=== PATIENT | female | born 1975 | race Hispanic/Latino ===

== ENCOUNTER 2025-09-25 09:36 | Outpatient (CLI) | payer BC ==
[2025-09-25] MEDS ORDERED: Iopamidol 370 76% 100 ML VIAL ONE (14:05)
== END 2025-09-25 09:37 | disposition home or self-care (01) ==
LOC: CT 09:36
PROVIDERS: ATTEND Internal Medicine Gastroenterology
DX: K58.1 Irritable bowel syndrome with constipation (principal); Z86.0100 Personal history of colon polyps, unspecified
CPT/HCPCS: 74177; Q9967